=== PATIENT | female | born 1970 | race Caucasian/White ===

== ENCOUNTER → 2020-03-11 15:33 | Outpatient (BNVA) | payer OTHER, SELFPAY | PROVIDERS: PCP Physician Assistant; Visit Provider Internal Medicine | DX: M25.50 Pain in unspecified joint (principal); R53.83 Other fatigue; D86.9 Sarcoidosis, unspecified; L40.9 Psoriasis, unspecified; E03.9 Hypothyroidism, unspecified; K90.0 Celiac disease | CPT/HCPCS: 99204 ==

== ENCOUNTER → 2020-04-15 14:03 | Outpatient (BNVA) | payer OTHER, SELFPAY | PROVIDERS: PCP Physician Assistant; Visit Provider Internal Medicine | DX: K90.0 Celiac disease (principal); M25.50 Pain in unspecified joint; E03.9 Hypothyroidism, unspecified; R53.83 Other fatigue | CPT/HCPCS: 99214 ==

== ENCOUNTER → 2020-09-19 11:01 | Outpatient (BNVA) | payer OTHER, SELFPAY | PROVIDERS: PCP Physician Assistant; Visit Provider Internal Medicine | DX: K90.0 Celiac disease (principal); E03.9 Hypothyroidism, unspecified; M25.50 Pain in unspecified joint; R53.83 Other fatigue; Z98.890 Other specified postprocedural states; R74.01 Elevation of levels of liver transaminase levels | CPT/HCPCS: 99214 ==

== ENCOUNTER → 2021-03-18 10:40 | Outpatient (BNVA) | payer OTHER, SELFPAY | PROVIDERS: PCP Physician Assistant; Visit Provider Internal Medicine | DX: K90.0 Celiac disease (principal); E03.9 Hypothyroidism, unspecified; M25.50 Pain in unspecified joint; R53.83 Other fatigue; R74.01 Elevation of levels of liver transaminase levels; R74.8 Abnormal levels of other serum enzymes; E78.1 Pure hyperglyceridemia | CPT/HCPCS: 99214 ==

== ENCOUNTER → 2022-04-21 11:56 | Outpatient (BNVA) | payer OTHER, SELFPAY | PROVIDERS: PCP Physician Assistant; Visit Provider Internal Medicine | DX: R74.8 Abnormal levels of other serum enzymes (principal); R74.01 Elevation of levels of liver transaminase levels; M79.7 Fibromyalgia; G62.9 Polyneuropathy, unspecified | CPT/HCPCS: 72040; 72100; 73120 ==

== ENCOUNTER → 2022-04-22 13:54 | Outpatient (BNVA) | payer OTHER, SELFPAY | PROVIDERS: PCP Physician Assistant; Visit Provider Nurse Practitioner Family | DX: G62.9 Polyneuropathy, unspecified (principal); M79.7 Fibromyalgia; R74.01 Elevation of levels of liver transaminase levels; R74.8 Abnormal levels of other serum enzymes | CPT/HCPCS: 86003; 86008 ==

== ENCOUNTER → 2024-04-19 15:45 | Outpatient (BNVA) | payer BC, SELFPAY | PROVIDERS: PCP Physician Assistant; Visit Provider Specialist | DX: K75.81 Nonalcoholic steatohepatitis (NASH) (principal) | CPT/HCPCS: 36415; 82103 ==